=== PATIENT | female | born 1990 | race Caucasian/White ===

== ENCOUNTER 2018-03-29 20:51 | Emergency (ER) | payer OTHER ==
[2018-03-29 21:02] VITALS: BP 120/75
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
--- NOTE | 2018-03-30 10:19 | CR ---
Pelvis and right hip: AP view of the pelvis was obtained as well as AP and frog-leg lateral views of the right hip. Comparison: No prior plain film study Joint spaces within both hips are maintained. Sacroiliac joints are within normal limits. No fracture or other bony abnormality is seen. Impression: 1. No abnormality is identified on two-view right hip study or on AP pelvis exam. Diagnostic code #1
== END 2018-03-29 22:10 | disposition home or self-care (01) ==
LOC: JD.ED 20:51
DX: S70.01XA Contusion of right hip, initial encounter (principal); K21.9 Gastro-esophageal reflux disease without esophagitis; Z79.899 Other long term (current) drug therapy; V19.9XXA Pedal cyclist (driver) (passenger) injured in unspecified traffic accident, initial encounter
CPT/HCPCS: 73502-26-RT; 73502-RT; 99283

== ENCOUNTER 2023-03-25 07:04 | Inpatient (IN) | payer BC ==
[~2023-03-25 07:04] MED LIST: Ropivacaine 0.2% PF 2 MG/ML 20 ML SDV ONE
[2023-03-25] MEDS ORDERED: Nalbuphine 10 MG/0.5 ML Syringe IVPUSH PRN (07:51)
[2023-03-25] MEDS ORDERED: Lidocaine 1% 50 ML MDV INJECT PRN (07:51)
[2023-03-25] MEDS ORDERED: Ondansetron 4 MG/2 ML SDV IVPUSH PRN (07:51)
[2023-03-25] MEDS ORDERED: Oxytocin/Lactated Ringers 10 UNIT/1,000 ML BAG IV SCH ×2 (08:00)
[2023-03-25] MEDS: Lactated Ringers 1,000 ML IV SCH ×2 (08:09→12:50)
[2023-03-25] MEDS ORDERED: diphenhydrAMINE 50 MG/ML SDV IVPUSH PRN (12:05)
[2023-03-25] MEDS ORDERED: fentaNYL 100 MCG/2 ML SDV EPIDUR PRN (12:05)
[2023-03-25] MEDS ORDERED: Bupivacaine/fentaNYL/NS 100 ML Bag EPIDUR PRN (12:05)
[2023-03-25] MEDS ORDERED: ePHEDrine 50 MG/ML SDV IVPUSH PRN (12:05)
[2023-03-25] MEDS ORDERED: Benzocaine/Menthol 20%-0.5% Spray 78 GM Cannister TOP PRN (19:01)
[2023-03-25] MEDS: Witch Hazel Medicated Pads 40/Jar TOP PRN (19:38)
[2023-03-25] MEDS: Acetaminophen 325 MG Tab PO PRN (20:47)
[2023-03-25] MEDS: Ibuprofen 600 MG Tab PO PRN (20:48)
[2023-03-26] MEDS: Acetaminophen 325 MG Tab PO PRN ×3 (01:00→15:37)
[2023-03-26] MEDS: Ibuprofen 600 MG Tab PO PRN ×4 (03:50→17:39)
[2023-03-26] MEDS: Witch Hazel Medicated Pads 40/Jar TOP PRN ×2 (08:55→19:03)
[2023-03-26 18:20] VITALS: BP 125/83; PULSE 69
== END 2023-03-26 19:23 | disposition home or self-care (01) | DRG 560 ==
LOC: JD.OB 07:04 → INTOOBSV 07:04 → OBSVTOIN 17:48 → JD.OB 17:49
PROVIDERS: ADMIT Family Medicine; ATTEND Family Medicine
PROC: 10E0XZZ Delivery of Products of Conception, External Approach (ICD-10-PCS; principal; 2023-03-25)
PROC: 10907ZC Drainage of Amniotic Fluid, Therapeutic from Products of Conception, Via Natural or Artificial Opening (ICD-10-PCS; 2023-03-25)
PROC: 3E033VJ Introduction of Other Hormone into Peripheral Vein, Percutaneous Approach (ICD-10-PCS; 2023-03-25)
PROC: 0HQ9XZZ Repair Perineum Skin, External Approach (ICD-10-PCS; 2023-03-25)
PROC: 0UQMXZZ Repair Vulva, External Approach (ICD-10-PCS; 2023-03-25)
DX: O99.12 Other diseases of the blood and blood-forming organs and certain disorders involving the immune mechanism complicating childbirth (principal); D69.6 Thrombocytopenia, unspecified; Z3A.39 39 weeks gestation of pregnancy; Z37.0 Single live birth; O99.344 Other mental disorders complicating childbirth; F32.A Depression, unspecified; O70.0 First degree perineal laceration during delivery; F41.9 Anxiety disorder, unspecified; Z98.890 Other specified postprocedural states
CPT/HCPCS: 36415; 51702; 59025; 59409; 85025; 86592; 86850; 86900; 86901; A9270-GY; J2590; J2795; J3490; J7120

== ENCOUNTER 2025-03-17 20:45 | Inpatient (IN) | payer BC ==
[2025-03-17] MEDS: Oxytocin/0.9 % Sodium Chloride 30 UNIT/500 ML BAG IV SCH (21:20)
[2025-03-17] MEDS ORDERED: Ondansetron 4 MG/2 ML SDV IVPUSH PRN (21:34)
[2025-03-17] MEDS ORDERED: Sodium Chloride 0.9% 10 ML Syringe FLUSH PRN (21:34)
[2025-03-17] MEDS ORDERED: Lidocaine 1% 50 ML MDV INJECT PRN (21:34)
[2025-03-17] MEDS ORDERED: Nalbuphine 10 MG/1 ML Vial IVPUSH PRN (21:34)
[2025-03-17 21:44] LABS: BASOPHILS PERCENT AUTO 0.2 % (0.0-1.0); EOSINOPHILS ABSOLUTE AUTO 0.1 K/mm3 (0.0-0.4); EOSINOPHILS PERCENT AUTO 0.4 % (0.0-6.0); HEMATOCRIT 38.6 % (37.0-47.0); HEMOGLOBIN 13.2 gm/dl (12.0-16.0); IMMATURE GRAN ABSOLUTE AUTO 0.07 K/mm3 (0.00-0.05); IMMATURE GRAN PERCENT AUTO 0.6 % (0.0-0.4); LYMPHOCYTES ABSOLUTE AUTO 1.8 K/mm3 (1.0-4.8); LYMPHOCYTES PERCENT AUTO 14.5 % (24.0-44.0); MEAN CORPUSCULAR HEMOGLOBIN 31.1 pg (28.0-32.0); MEAN CORPUSCULAR HGB CONC 34.2 g/dl (32.0-36.0); MEAN PLATELET VOLUME 11.1 fl (9.4-12.3); MONOCYTES ABSOLUTE AUTO 0.9 K/mm3 (0.0-0.8); MONOCYTES PERCENT AUTO 7.2 % (0.0-8.0); NEUTROPHILS ABSOLUTE AUTO 9.3 K/mm3 (1.8-7.7); NEUTROPHILS PERCENT AUTO 77.1 % (41.0-71.0); PLATELET COUNT,PLT 163 K/mm3 (150-400); RED BLOOD CELL COUNT 4.24 M/mm3 (4.10-5.30); WHITE BLOOD CELL COUNT,WBC 12.06 K/mm3 (3.9-11.3)
[2025-03-17] MEDS ORDERED: Lactated Ringers 1,000 ML IV SCH (21:45)
[2025-03-17] MEDS ORDERED: Docusate Sodium 100 MG Cap PO PRN (22:46)
[2025-03-17] MEDS ORDERED: Hydrocortisone Acetate 25 MG Supp RECTAL PRN (22:46)
[2025-03-17] MEDS: Acetaminophen 325 MG Tab PO PRN (23:01)
[2025-03-17] MEDS: Ibuprofen 600 MG Tab PO SCH (23:01)
[2025-03-17] MEDS: Witch Hazel Medicated Pads 40/Jar TOP PRN (23:26)
[2025-03-17] MEDS: Benzocaine/Menthol 20%-0.5% Spray 78 GM Cannister TOP PRN (23:27)
[2025-03-17] MEDS: busPIRone 5 MG Tab PO SCH (23:53)
[2025-03-18] MEDS: FLUoxetine 20 MG Cap PO SCH (08:28)
[2025-03-18] MEDS ORDERED: Sodium Chloride 0.9% 10 ML Syringe FLUSH SCH (09:00)
[2025-03-18 20:51] VITALS: BP 126/66; PULSE 68
== END 2025-03-18 22:55 | disposition home or self-care (01) | DRG 560 ==
LOC: JD.OBCHECK 20:45 → JD.OB 20:50 → JD.OBCHECK 20:55 → OBSVTOIN 20:55 → EDSTATUS 21:09 → JD.OBCHECK 21:10 → JD.OB 21:10 → UNDOADMOB 21:38 → JD.OBCHECK 21:38
PROVIDERS: ADMIT Family Medicine; ATTEND Family Medicine
PROC: 10E0XZZ Delivery of Products of Conception, External Approach (ICD-10-PCS; principal; 2025-03-17)
PROC: 10907ZC Drainage of Amniotic Fluid, Therapeutic from Products of Conception, Via Natural or Artificial Opening (ICD-10-PCS; 2025-03-17)
DX: O99.344 Other mental disorders complicating childbirth (principal); Z37.0 Single live birth; O71.82 Other specified trauma to perineum and vulva; O69.81X0 Labor and delivery complicated by cord around neck, without compression, not applicable or unspecified; Z3A.38 38 weeks gestation of pregnancy; O70.0 First degree perineal laceration during delivery; F32.A Depression, unspecified; F41.9 Anxiety disorder, unspecified
CPT/HCPCS: 36415; 59025; 59409; 85025; 86592; A9270-GY; J7999